=== PATIENT | male | born 1935 | race Two or more races ===

== ENCOUNTER 2018-03-02 11:04 | Outpatient (CLI) | payer OTHER ==
[~2018-03-02 11:04] MED LIST: SYNTHROID112 MCG; TIAZAC240 MG; ZOCOR5 MG
== END 2018-03-02 17:00 | disposition home or self-care (01) ==
LOC: MRI 11:04
DX: G46.4 Cerebellar stroke syndrome (principal); G46.7 Other lacunar syndromes
CPT/HCPCS: 70553; A9579

== ENCOUNTER 2018-03-06 08:17 | Outpatient (CLI) | payer OTHER | END 2018-03-06 10:00 | disposition home or self-care (01) | LOC: NUCLEAR 08:17 | DX: I72.0 Aneurysm of carotid artery (principal); E11.40 Type 2 diabetes mellitus with diabetic neuropathy, unspecified ==

== ENCOUNTER 2023-09-11 07:33 | Outpatient (CLI) | payer OTHER | END 2023-09-11 07:34 | disposition home or self-care (01) | LOC: NUCLEAR 07:33 | PROVIDERS: ATTEND Internal Medicine | DX: I73.9 Peripheral vascular disease, unspecified (principal); I87.2 Venous insufficiency (chronic) (peripheral) ==

== ENCOUNTER → 2023-09-12 08:18 | Outpatient (CLI) | payer OTHER | END | disposition home or self-care (01) | LOC: NUCLEAR 08:18 | PROVIDERS: ATTEND Internal Medicine | DX: I73.9 Peripheral vascular disease, unspecified (principal); I87.2 Venous insufficiency (chronic) (peripheral) ==

== ENCOUNTER 2023-11-21 07:21 | Outpatient (CLI) | payer OTHER | END 2023-11-21 07:23 | disposition home or self-care (01) | LOC: NUCLEAR 07:21 | PROVIDERS: ATTEND Internal Medicine | DX: I20.9 Angina pectoris, unspecified (principal) | CPT/HCPCS: 78452; 93017; A9500 ==